=== PATIENT | female | born 1965 | race Caucasian/White ===

== ENCOUNTER 2016-10-26 07:01 | Emergency (ER) | payer OTHER ==
[~2016-10-26 07:01] MED LIST: FLEXERIL10 MG PO; HYDROCODONE-APA1 TAB PO; LINZESS PO; MELATONIN10 M2 PO; NEURONTIN300 M1 PO; PHENERGAN25 M1 PO; SAVELLA50 MG PO; VIIBRYD20 MG PO; WELLBUTRIN SR150 MG PO; XANAX0.5 MG PO; XARELTO10 MG PO; ZYRTEC10 MG PO
[2016-10-26 08:17] LABS: BILIRUBIN NEGATIVE (NEGATIVE); BLOOD NEGATIVE Ery/uL (NEGATIVE); CLARITY CLEAR (CLEAR); COLOR YELLOW (YELLOW); GLUCOSE (U) NORMAL (NORMAL); KETONE (U) NEGATIVE (NEGATIVE); LEUKOCYTES TRACE Leu/uL (NEGATIVE); NITRITE NEGATIVE (NEGATIVE); PROTEIN NEGATIVE (NEGATIVE); SPECIFIC GRAVITY <=1.005 (1.001-1.030); UROBILINOGEN 0.2 mg/dL (0.2-1.0)
[2016-10-26 08:27] LABS: BACTERIA TRACE
== END 2016-10-26 09:45 | disposition home or self-care (01) ==
LOC: FER 07:01
PROVIDERS: Emergency Medicine
DX: M51.16 Intervertebral disc disorders with radiculopathy, lumbar region (principal); F41.9 Anxiety disorder, unspecified; R20.2 Paresthesia of skin; M54.2 Cervicalgia; M25.561 Pain in right knee; M25.562 Pain in left knee; G89.29 Other chronic pain; Z88.5 Allergy status to narcotic agent; Z79.891 Long term (current) use of opiate analgesic; Z79.899 Other long term (current) drug therapy; Z98.890 Other specified postprocedural states
CPT/HCPCS: 72131; 73564; 81001; J1170; J2405

== ENCOUNTER 2022-01-31 10:43 | Emergency (ER) | payer OTHER ==
[~2022-01-31 10:43] MED LIST changes: +ALLERGY SHOTS; +ATARAX25 MG PO; +BUSPIRONE PO; +ELIQUIS5 MG PO; +HCTZ12.5 MG PO; +LIPITOR20 MG PO; +LOPRESSOR25 MG PO; +PERCOCET 5-3251 EACH PO; +REMERON15 MG PO; +REXULTI2 MG PO; +SEROQUEL50 MG PO; +SINGULAIR10 MG PO; +SKELAXIN800 MG PO; +TOPAMAX50 MG PO; +VIT B 12 INJECTION IJ; +VIT D PO; +VRAYLAR1.5 MG PO; +XYZAL5 MG PO
[2022-01-31 12:31] LABS: BASOPHIL 0.8 % (0-2); EOSINOPHIL 4.6 % (0-5); HCT 36.8 % (37.0-47.0); HGB 11.4 g/dl (12.5-16.0); MCV 87.2 fL (78.0-100.0); MPV 11.2 fL (6.0-9.5); NEUTROPHIL 52.4 % (41-80); NRBC 0; PLT 368 K/uL (150-400); RBC 4.22 M/uL (4.20-5.40); WBC 6.2 K/uL (4.0-10.5)
[2022-01-31 12:54] LABS: BILIRUBIN NEGATIVE (NEGATIVE); BLOOD NEGATIVE Ery/uL (NEGATIVE); CLARITY CLEAR (CLEAR); COLOR YELLOW (YELLOW); GLUCOSE (U) NORMAL (NORMAL); LEUKOCYTES NEGATIVE Leu/uL (NEGATIVE); NITRITE NEGATIVE (NEGATIVE); PROTEIN NEGATIVE (NEGATIVE)
[2022-01-31 12:55] LABS: AMPHETAMINES NEGATIVE (NEGATIVE); BARBITURATES NEGATIVE (NEGATIVE); ECSTASY (MDMA) NEGATIVE (NEGATIVE); MARIJUANA (THC) NEGATIVE (NEGATIVE); METHADONE NEGATIVE (NEGATIVE); OPIATES NEGATIVE (NEGATIVE); OXYCODONE NEGATIVE (NEGATIVE)
[2022-01-31 13:10] LABS: ALBUMIN 3.4 g/dL (3.4-5.0); ALKALINE PHOSHATASE 149 U/L (46-116); ALT 50 U/L (14-59); AST 37 U/L (15-37); BILIRUBIN - TOTAL 0.4 mg/dL (0.2-1.0); BUN 19 mg/dL (7-18); BUN/CREAT RATIO (CALC) 17.8 RATIO; CHLORIDE 107 mmol/L (98-107); CO2 (BICARBONATE) 28 mmol/L (21-32); CREATININE 1.07 mg/dL (0.51-0.95); GLOBULIN (CALCULATION) 3.7 g/dL; GLUCOSE 102 mg/dL (74-106); POTASSIUM 4.1 mmol/L (3.5-5.1); TOTAL PROTEIN 7.1 g/dL (6.4-8.2)
[2022-01-31 13:11] LABS: ACETAMINOPHEN (TYLENOL) < 2.0 ug/mL (10.0-30.0)
== END 2022-01-31 13:47 | disposition home or self-care (01) ==
LOC: FER 10:43
PROVIDERS: Emergency Medicine
DX: F32.A Depression, unspecified (principal); J45.909 Unspecified asthma, uncomplicated; Z79.01 Long term (current) use of anticoagulants
CPT/HCPCS: 36415; 70450; 71045; 80053; 80305; 81003; 84443; 85025; 93005; G0480